=== PATIENT | male | born 1945 | race Caucasian/White ===

== ENCOUNTER → 2020-02-01 | Day surgery (SDC) | payer OTHER ==
[~2020-02-01] VITALS: Ht 167.6 cm; Wt 93.4 kg
[~2020-02-01] MED LIST: ALOGLIPTIN25 MG PO; AMITRIPTYLINE H25 M3 PO; ASPIR 8181 M1 PO; ATORVASTATIN CA80 MG PO; FLOMAX0.4 MG PO; GLIPIZIDE5 MG PO; GLUCOPHAGE1000 MG PO; TOPROL XL100 MG PO; ULTRAM50 MG PO
--- NOTE | ~2020-02-01 | O ---
[address] [place] [address] OPERATIVE REPORT Name: TODD ZURITA Room #: REG [facility]#: [id number] Admission: 02/01/20 Attend Phys: Jason Gonzalez MD Discharge: Date of : 47 Report #: [id number] THIS REPORT FOR: cc: Norberto Abernathy MD,Norberto Gonzalez,Jason Cardenas MD ~ CC: Norberto Reynolds ____ Dr. Josemanuel Gonzalez DATE OF SERVICE: 02/01/2020 PREOPERATIVE DIAGNOSIS: Tumor of left lower lid and cheek. POSTOPERATIVE DIAGNOSIS: Tumor of left lower lid and cheek. PROCEDURE: Excision of lesion of left lower lid and cheek with frozen section, control of margins and myocutaneous flap repair of defect. SURGEON: Jason Gonzalez MD HUMAN RESOURCE ADVISOR: None. ANESTHESIA: MAC. COMPLICATIONS: None. INDICATIONS FOR SURGERY: This pleasant 74-year-old gentleman has a nodular ulcerative lesion situated in the central portion of his left lower lid. It appears to be a basal cell carcinoma. He presents today for excision of this lesion with repair of the ensuing defect after frozen sections confirmed tumor extirpation. Informed consent was obtained to include but not limited to the potential risk for loss of vision, bleeding, infection, failure to improve the problem, the potential need for further surgery. DESCRIPTION OF PROCEDURE: The patient was taken to the operating room where 2% Xylocaine with epinephrine mixed with equal parts 0.75% Marcaine with Wydase was administered transcutaneously and transconjunctivally to the left lower lid, to left medial canthus, left lateral canthus, the left cheek and left infratemporal fossa. The patient was subsequently prepped and draped in the usual sterile fashion. A fine tip skin marking pen was then utilized to outline the lesion including 2 mm of tissue around its margins. The incisions were then made perpendicularly across the eyelid margin and drawn down to a point in the premalar space. The specimen was then oriented on a drawing for the waiting pathologist. Hemostasis was achieved in the field with diligent pinpoint [address] [address] OPERATIVE REPORT Name: PARMINDERTODD ROZINA Room #: REG [facility]#: [id number] Admission: 02/01/20 Attend Phys: Jason Gonzalez MD Discharge: Date of : 47 Report #: [id number] monopolar cautery. The pathologist snap froze that tissue and found that her margins were clear, but she was unsure as to the exact nature of the lesion. Attention was then turned to reconstruction of the defect. An incision was then made superolaterally from the left lateral canthus, heading towards the superior portion of the ear. A myocutaneous flap was then developed and rotated into position. Hemostasis was re-achieved. The flap was secured with multiple interrupted buried 5-0 Vicryl sutures deep. The tarsal plate was reapproximated with interrupted 5-0 Vicryl sutures. The eyelid margin was reapproximated with interrupted 7-0 Vicryl sutures. The subcutaneous structures and the skin were closed with interrupted buried Vicryl sutures and then a final skin closure with 6-0 plain gut sutures. The wounds were then cleaned and dressed with erythromycin ophthalmic ointment. The patient subsequently transported to the recovery area having tolerated the procedures well with no anesthetic or operative complications being noted. By: [id number] [id number] Jason Gonzalez MD /nt
[2020-02-01 11:49] VITALS: BP 163/79
--- NOTE | 2020-02-06 18:08 | PATH ---
[facility] [place] [address] PATHOLOGY RPT PROCEDURE Name: TODD ZURITA Room #: REG [facility]..#: [id number] Admission: 02/01/20 Date of : 47 Discharge: Report #: [id number] Path Case #: [id number] [facility] Accession Number: [id number] . 01 Material submitted: . lid - TUMOR LEFT LOWER LID,FS. Modifiers: left, lower . 02 Frozen section diagnosis: . FROZEN SECTION DIAGNOSIS (Dr. Carito Soto) . FSA1. Skin, left lower lid, excision: - Squamo-proliferative lesion present. - Margins on FS slides free of invasive carcinoma. . These findings are discussed with Dr. Jason Gonzalez in OR-6 at [facility] and a written report is placed in the patient's chart. . . GROSS DESCRIPTION Specimen is received fresh from the OR labeled with the patient's name, "tumor left lower lid", consists of an inverted triangular specimen of skin excision measuring 0.8 cm at the base, and 0.8 cm to its height. The specimen is oriented as superior lateral inferior and medial. The margins are inked as follows: Lateral to inferior is inked black, the infero-medial margin is inked blue, and the superomedial margin is inked green. The superior border (base of the triangle) is further tagged with orange ink. Specimen is sectioned into 3 pieces and submitted for frozen section entirely as FSA1, this is subsequently submitted for permanent section as A1. (IUV:gunite mixer; 02/01/2020) . Frozen section performed at [facility], [address] [place], [place] [address], [place] [address]. IZV/QTP . 02 Diagnosis: Skin, left lower lid tumor, excision: - BASAL CELL CARCINOMA. - Margins of resection, free of malignancy. (IUV:von; 02/06/2020) QMS 02/06/2020 1340 Local . 02 Electronically signed: . Carito Soto MD, Pathologist NPI- [id number] . 01 [facility] [address] [place] [address] PATHOLOGY RPT PROCEDURE Name: TODD ZURITA Room #: REG [facility]#: [id number] Admission: 02/01/20 Date of : 47 Discharge: Report #: [id number] Path Case #: [id number] Gross description: . SEE GROSS DECRIPTION UNDER FROZEN SECTION DIAGNOSIS. /QMS 02/06/2020 1338 Local . 02 Pathologist provided ICD-10: C44.1192 . 02 CPT . 992937, 812252 Specimen Comment: A courtesy copy of this report has been sent to [phone] Specimen Comment: [phone] Specimen Comment: Report sent to / DR PULIDO Performed at: [address], [place] [id number] MD Janes Swartz MD Phone: [phone] Performed at: [address] [id number] MD Carito Soto MD Phone: [phone]
== END | disposition home or self-care (01) ==
LOC: OR 10:34
DX: C44.1192 Basal cell carcinoma of skin of left lower eyelid, including canthus (principal); I10 Essential (primary) hypertension; E11.9 Type 2 diabetes mellitus without complications; E78.5 Hyperlipidemia, unspecified; Z98.890 Other specified postprocedural states; Z79.899 Other long term (current) drug therapy; Z11.59 Encounter for screening for other viral diseases; Z85.828 Personal history of other malignant neoplasm of skin; Z87.891 Personal history of nicotine dependence; Z96.653 Presence of artificial knee joint, bilateral; Z96.641 Presence of right artificial hip joint; Z96.611 Presence of right artificial shoulder joint; Z79.82 Long term (current) use of aspirin
CPT/HCPCS: 50010; 50101; 50386; 50398; 51636; 56528; 56531; 62110; 62850; 70005